=== PATIENT | female | born 1980 | race Caucasian/White ===

== ENCOUNTER 2017-04-18 12:48 | Emergency (ER) | payer SELFPAY ==
[2017-04-18 14:15] LABS: #Basophils 0.1 thou/uL (0.0-0.2); #Eosinphils 0.1 thou/uL (0.0-0.7); #Lymphocytes 1.1 thou/uL (1.20-3.40); #Monocytes 0.6 thou/uL (0.11-0.59); #Neutrophils 5.6 thou/uL (1.40-6.50); %Basophils 0.9 % (0.0-1.0); %Lymphocytes 14.9 % (21.0-51.0); %Monocytes 7.4 % (0.0-10.0); Hematocrit 44.1 % (36.0-47.0); Red Blood Cell (RBC) Count 4.59 mill/uL (4.20-5.40); White Blood Cell (WBC) Count 7.5 thou/uL (4.8-10.8)
[2017-04-18 14:19] LABS: Bilirubin Negative (Negative); Blood, Urine Small (Negative); Glucose, Urine (Dipstick) Negative (Negative); Ketone, Urine Negative (Negative); Nitrite Negative (Negative); Protein, Urine (Dipstick) Trace mg/dL (Neg-Trace)
[2017-04-18 14:20] LABS: Bacteria/HPF 1+ HPF (None Seen); RBC/HPF 0-3 HPF (0-3); WBC/HPF 21-50 HPF (0-3)
[2017-04-18 14:30] LABS: Hyaline Casts/LPF 0-3 HYALINE CAST LPF (0-3 Hyaline); Yeast-All Forms None Seen HPF (None Seen)
[2017-04-18 14:39] LABS: ALT (SGPT) 441 U/L (8-55); AST (SGOT) 194 U/L (5-34); Alkaline Phosphatase 103 U/L (40-150); Anion Gap 14 mmol/L (10-20); BUN (Urea Nitrogen) 15 mg/dL (7.0-18.7); Bilirubin, Total 0.7 mg/dL (0.2-1.2); Calc. Creatinine Clearance 0 mL/min (70-130); Calcium 9.2 mg/dL (7.8-10.44); Carbon Dioxide 23 mmol/L (22-29); Chloride 104 mmol/L (98-107); Estimated GFR-MDRD 82; Globulin 3.4 g/dL (2.4-3.5); Protein, Total 7.3 g/dL (6.0-8.3); Troponin I 0.013 ng/mL (< 0.028)
--- NOTE | 2017-04-18 14:51 | CT ---
NONCONTRAST CT FACIAL BONES 04/18/2017 HISTORY: Syncopal episode in parking garage. The patient hit head on ground causing abrasions. COMPARISON: 05/23/2016. FINDINGS: The left temporomandibular joint is incompletely imaged, but there does not appear to be dislocation at this level and no obvious fracture seen involving the mandible. No additional fracture seen inv olving the facial bones. There is polypoid mucosal thickening seen within the right maxillary antrum which does represent an interval change from prior exam in 2016. The orbits have a normal and symmetric appearance bilaterally. IMPRESSION: 1. No acute fracture seen involving the facial bones. 2. Sinus disease involving the right maxillary antrum. POS: [facility]
--- NOTE | 2017-04-18 14:53 | CT ---
HEAD CT WITHOUT CONTRAST 04/18/2017 COMPARISON: 05/21/2016 HISTORY: Syncopal episode, head trauma, abrasion. TECHNIQUE: Serial axial CT imaging at 5-mm intervals from vertex through skull base without contrast. FINDINGS: Imaged paranasal sinuses and mastoid air cells appear within normal limits. No displaced calvarial fracture. No intracranial hemorrhage, midline shift, mass effect, or ventric ular enlargement. IMPRESSION: No intracranial hemorrhage or displaced calvarial fracture. POS: [facility]
[2017-04-18] MEDS ORDERED: Bacitracin Zinc 1 Packet ONE (15:11)
== END 2017-04-18 15:26 | disposition home or self-care (01) ==
LOC: ERS 12:48
DX: E86.0 Dehydration (principal); N39.0 Urinary tract infection, site not specified; E11.9 Type 2 diabetes mellitus without complications; I10 Essential (primary) hypertension; F41.9 Anxiety disorder, unspecified; F31.9 Bipolar disorder, unspecified; F20.9 Schizophrenia, unspecified
CPT/HCPCS: 36415; 36416; 70450; 70486; 80053; 81003; 81015; 82553; 84484; 84703; 85025; 93005

== ENCOUNTER 2017-06-09 11:39 | Emergency (ER) | payer SELFPAY ==
[2017-06-09 12:23] LABS: #Basophils 0.1 thou/uL (0.0-0.2); #Eosinphils 0.2 thou/uL (0.0-0.7); #Neutrophils 3.9 thou/uL (1.40-6.50); %Basophils 0.9 % (0.0-1.0); %Eosinophils 2.6 % (0.0-10.0); %Lymphocytes 27.6 % (21.0-51.0); %Monocytes 14.3 % (0.0-10.0); Hematocrit 41.3 % (36.0-47.0); Mean Platelet Volume 7.1 fL (7.4-10.4); Red Blood Cell (RBC) Count 4.17 mill/uL (4.20-5.40); White Blood Cell (WBC) Count 7.2 thou/uL (4.8-10.8)
[2017-06-09 12:44] LABS: ALT (SGPT) 546 U/L (8-55); AST (SGOT) 285 U/L (5-34); Alkaline Phosphatase 122 U/L (40-150); Anion Gap 12 mmol/L (10-20); BUN (Urea Nitrogen) 11 mg/dL (7.0-18.7); Bilirubin, Total 0.5 mg/dL (0.2-1.2); Calc. Creatinine Clearance 0 mL/min (70-130); Calcium 9.1 mg/dL (7.8-10.44); Carbon Dioxide 22 mmol/L (22-29); Chloride 108 mmol/L (98-107); Estimated GFR-MDRD Greater than 90; Globulin 3.2 g/dL (2.4-3.5)
[2017-06-09 13:46] LABS: Bilirubin Negative (Negative); Blood, Urine Negative (Negative); Glucose, Urine (Dipstick) Negative (Negative); Ketone, Urine Negative (Negative); Nitrite Negative (Negative); Protein, Urine (Dipstick) Negative (Neg-Trace); Urobilinogen 0.2 mg/dL (0.2-1.0)
[2017-06-09] MEDS ORDERED: Ondansetron ODT 4 MG TAB ONE (13:57)
== END 2017-06-09 15:05 | disposition home or self-care (01) ==
LOC: ERS 11:39
DX: B17.9 Acute viral hepatitis, unspecified (principal); R53.83 Other fatigue; R11.2 Nausea with vomiting, unspecified; E11.9 Type 2 diabetes mellitus without complications; F41.9 Anxiety disorder, unspecified; F31.9 Bipolar disorder, unspecified; F20.9 Schizophrenia, unspecified; I10 Essential (primary) hypertension
CPT/HCPCS: 36415; 36416; 80053; 81003; 85025; 99284; Q0162

== ENCOUNTER 2017-06-22 14:53 | Emergency (ER) | payer SELFPAY | END 2017-06-22 17:06 | disposition left against medical advice (07) | LOC: ERS 14:53 | DX: Z53.21 Procedure and treatment not carried out due to patient leaving prior to being seen by health care provider (principal) | CPT/HCPCS: 87804 ==

== ENCOUNTER 2017-06-23 10:46 | Emergency (ER) | payer SELFPAY ==
--- NOTE | 2017-06-23 12:34 | RAD ---
CHEST 1 VIEW HISTORY: Chest pain. COMPARISON: Chest 1 view 05/21/2016. FINDINGS: Lungs are without consolidation, pneumothorax, or effusion. The patient is rotated to the right. No acute osseous abnormality. IMPRESSION: No acute intrathoracic abnormality. POS: [facility]
--- NOTE | 2017-07-16 15:14 | EKG ---
Test Reason : CP Blood Pressure : / mmHG Vent. Rate : 096 BPM Atrial Rate : 096 BPM P-R Int : 150 ms QRS Dur : 076 ms QT Int : 360 ms P-R-T Axes : 020 013 025 degrees QTc Int : 454 ms Normal sinus rhythm Normal ECG Confirmed by VEGA SORIANO, TIMBO ([id number]), editorial project manager AYAKA CUTLER ([id number]) on 07/16/2017 3:14:10 PM Referred By: Confirmed By:TIMBO FERRARI MD
== END 2017-06-23 12:13 | disposition home or self-care (01) ==
LOC: ERS 10:46
DX: J11.1 Influenza due to unidentified influenza virus with other respiratory manifestations (principal); R07.2 Precordial pain; E11.9 Type 2 diabetes mellitus without complications; I10 Essential (primary) hypertension; F41.9 Anxiety disorder, unspecified; F31.9 Bipolar disorder, unspecified; F20.9 Schizophrenia, unspecified
CPT/HCPCS: 71045; 93005

== ENCOUNTER 2017-11-17 15:50 | Emergency (ER) | payer SELFPAY ==
[2017-11-17 17:55] LABS: #Basophils 0.1 thou/uL (0.0-0.2); #Eosinphils 0.3 thou/uL (0.0-0.7); #Lymphocytes 2.2 thou/uL (1.20-3.40); #Monocytes 0.9 thou/uL (0.11-0.59); #Neutrophils 6.1 thou/uL (1.40-6.50); %Basophils 0.6 % (0.0-1.0); %Eosinophils 3.6 % (0.0-10.0); %Lymphocytes 22.7 % (21.0-51.0); %Monocytes 9.7 % (0.0-10.0); %Neutrophils 63.4 % (42.0-75.0); Hemoglobin 14.3 g/dL (12.0-16.0); Mean Corpuscular HGB CONC 33.7 g/dL (32.0-36.0); Mean Corpuscular Hemoglobin 31.5 pg (27.0-31.0); Mean Corpuscular Volume 93.5 fl (81.0-99.0); Platelet Count 240 thou/uL (130-400); RBC Distribution Width 12.1 % (11.5-14.5); Red Blood Cell (RBC) Count 4.53 mill/uL (4.20-5.40); White Blood Cell (WBC) Count 9.6 thou/uL (4.8-10.8)
[2017-11-17 18:21] LABS: ALT (SGPT) 132 U/L (8-55); AST (SGOT) 67 U/L (5-34); Albumin 4.2 g/dL (3.5-5.0); Alkaline Phosphatase 78 U/L (40-150); Anion Gap 11 mmol/L (10-20); BUN (Urea Nitrogen) 17 mg/dL (7.0-18.7); Bilirubin, Total 1.3 mg/dL (0.2-1.2); Calc. Creatinine Clearance 0 mL/min (70-130); Calcium 9.6 mg/dL (7.8-10.44); Carbon Dioxide 24 mmol/L (22-29); Chloride 105 mmol/L (98-107); Estimated GFR-MDRD 79; Glucose 100 mg/dL (70-105); Potassium 3.8 mmol/L (3.5-5.1); Protein, Total 7.2 g/dL (6.0-8.3); Sodium 136 mmol/L (136-145)
== END 2017-11-17 19:15 | disposition home or self-care (01) ==
LOC: ERS 15:50
DX: L03.221 Cellulitis of neck (principal); K74.60 Unspecified cirrhosis of liver; I10 Essential (primary) hypertension; F31.9 Bipolar disorder, unspecified; F41.9 Anxiety disorder, unspecified; F20.9 Schizophrenia, unspecified; E11.9 Type 2 diabetes mellitus without complications
CPT/HCPCS: 36415; 80053; 85025; 87040; 93005; 94760

== ENCOUNTER 2017-11-19 11:35 | Emergency (ER) | payer SELFPAY ==
[2017-11-19 12:16] LABS: #Basophils 0.1 thou/uL (0.0-0.2); #Eosinphils 0.3 thou/uL (0.0-0.7); #Lymphocytes 1.7 thou/uL (1.20-3.40); #Monocytes 0.7 thou/uL (0.11-0.59); #Neutrophils 3.5 thou/uL (1.40-6.50); %Basophils 1.1 % (0.0-1.0); %Eosinophils 4.7 % (0.0-10.0); %Monocytes 10.6 % (0.0-10.0); %Neutrophils 56.6 % (42.0-75.0); Hemoglobin 13.4 g/dL (12.0-16.0); Mean Corpuscular HGB CONC 33.1 g/dL (32.0-36.0); Mean Corpuscular Hemoglobin 31.5 pg (27.0-31.0); Mean Platelet Volume 7.1 fL (7.4-10.4); Platelet Count 220 thou/uL (130-400); Red Blood Cell (RBC) Count 4.27 mill/uL (4.20-5.40); White Blood Cell (WBC) Count 6.2 thou/uL (4.8-10.8)
[2017-11-19 12:18] LABS: BHCG - Serum Negative (NEGATIVE); Pregs Control Background? CLEAR/WHITE (CLR/WHITE); Pregs Control Bar Appear? YES (CONTROL BAR)
[2017-11-19 12:29] LABS: ALT (SGPT) 125 U/L (8-55); AST (SGOT) 75 U/L (5-34); Albumin 3.7 g/dL (3.5-5.0); Alkaline Phosphatase 74 U/L (40-150); Anion Gap 9 mmol/L (10-20); BUN (Urea Nitrogen) 10 mg/dL (7.0-18.7); Bilirubin, Total 0.5 mg/dL (0.2-1.2); Calc. Creatinine Clearance 0 mL/min (70-130); Calcium 8.9 mg/dL (7.8-10.44); Carbon Dioxide 25 mmol/L (22-29); Chloride 108 mmol/L (98-107); Estimated GFR-MDRD Greater than 90; Globulin 2.6 g/dL (2.4-3.5); Glucose 90 mg/dL (70-105); Potassium 4.1 mmol/L (3.5-5.1); Protein, Total 6.3 g/dL (6.0-8.3); Sodium 138 mmol/L (136-145)
[2017-11-19 14:26] LABS: Bilirubin Negative (Negative); Blood, Urine Large (Negative); Clarity CLOUDY (Clear); Glucose, Urine (Dipstick) Negative (Negative); Leukocyte Trace (Negative); Nitrite Negative (Negative); Protein, Urine (Dipstick) Negative (Neg-Trace); Specific Gravity, Urine 1.027 (1.002-1.036); Urobilinogen 0.2 mg/dL (0.2-1.0)
[2017-11-19 14:29] LABS: Bacteria/HPF None Seen HPF (None Seen); Hyaline Casts/LPF 0-3 HYALINE CAST LPF (0-3 Hyaline); Pathc Cast-AUWi Flag 4.21 (0-2.49)
[2017-11-19] MEDS ORDERED: Acetaminophen 500 MG TAB ONE (14:35)
== END 2017-11-19 14:37 | disposition home or self-care (01) ==
LOC: ERS 11:35
DX: R55 Syncope and collapse (principal); M54.2 Cervicalgia; E11.9 Type 2 diabetes mellitus without complications; I10 Essential (primary) hypertension; Z86.19 Personal history of other infectious and parasitic diseases; F41.9 Anxiety disorder, unspecified; F31.9 Bipolar disorder, unspecified; F20.9 Schizophrenia, unspecified; X95.8XXA Assault by other firearm discharge, initial encounter
CPT/HCPCS: 36415; 80053; 81003; 81015; 84703; 85025; 93005

== ENCOUNTER 2018-02-09 14:20 | Emergency (ER) | payer SELFPAY | END 2018-02-09 15:22 | disposition home or self-care (01) | LOC: ERS 14:20 | DX: F43.0 Acute stress reaction (principal); E11.9 Type 2 diabetes mellitus without complications; I10 Essential (primary) hypertension ==

== ENCOUNTER 2018-03-15 11:52 | Emergency (ER) | payer SELFPAY ==
[2018-03-15 12:42] LABS: Bilirubin Small (Negative); Blood, Urine Large (Negative); Clarity CLOUDY (Clear); Glucose, Urine (Dipstick) Negative (Negative); Leukocyte Moderate (Negative); Nitrite Negative (Negative); Protein, Urine (Dipstick) Trace mg/dL (Neg-Trace)
[2018-03-15 12:44] LABS: WBC/HPF 21-50 HPF (0-3)
[2018-03-15 12:45] LABS: Pathc Cast-AUWi Flag 9.01 (0-2.49); Pregnancy Test - Urine (BHCG) Negative (Negative); Pregu Control Background? CLEAR/WHITE (CLR/WHITE); Pregu Control Bar Appear? YES (CONTROL BAR); Yeast-AUWi Flag 65.1 (0-25.0)
[2018-03-15 12:57] LABS: Bacteria/HPF 1+ HPF (None Seen); RBC/HPF 0-3 HPF (0-3)
[2018-03-15 12:58] LABS: Hyaline Casts/LPF 0-3 HYALINE CAST LPF (0-3 Hyaline); Manual Microscopic Reviewed? No Path Casts Seen; Yeast-All Forms None Seen HPF (None Seen)
[2018-03-15 13:18] LABS: #Basophils 0.1 thou/uL (0.0-0.2); #Eosinphils 0.3 thou/uL (0.0-0.7); #Monocytes 0.9 thou/uL (0.11-0.59); #Neutrophils 5.3 thou/uL (1.40-6.50); %Basophils 0.8 % (0.0-1.0); %Eosinophils 2.9 % (0.0-10.0); %Lymphocytes 23.4 % (21.0-51.0); %Neutrophils 61.9 % (42.0-75.0); Hemoglobin 14.6 g/dL (12.0-16.0); Mean Corpuscular HGB CONC 32.1 g/dL (32.0-36.0); Mean Corpuscular Hemoglobin 29.6 pg (27.0-31.0); Mean Corpuscular Volume 92.4 fL (78.0-98.0); Mean Platelet Volume 7.2 fL (7.4-10.4); Platelet Count 289 thou/uL (130-400); RBC Distribution Width 11.8 % (11.5-14.5); Red Blood Cell (RBC) Count 4.93 mill/uL (4.20-5.40); White Blood Cell (WBC) Count 8.6 thou/uL (4.8-10.8)
[2018-03-15 13:20] LABS: Amphetamine Detected (NotDetected); Barbiturates Screen Not Detected (NotDetected); Benzodiazepine Screen Not Detected (NotDetected); Cocaine Metabolite Screen Not Detected (NotDetected); Medtox Reader # READER 1; Methadone Not Detected (NotDetected); Methamphetamine Detected (NotDetected); Opiate Screen Not Detected (NotDetected); Oxycodone Screen Not Detected (NotDetected); Phencyclidine (PCP) Not Detected (NotDetected); THC/Cannabinoid Screen Not Detected (NotDetected); Tricyclic Screen Not Detected (NotDetected)
[2018-03-15 13:21] LABS: Medtox Control Line Valid? VALID (VALID)
[2018-03-15 13:28] LABS: ALT (SGPT) 161 U/L (8-55); AST (SGOT) 110 U/L (5-34); Albumin 4.2 g/dL (3.5-5.0); Alkaline Phosphatase 92 U/L (40-150); Anion Gap 15 mmol/L (10-20); BUN (Urea Nitrogen) 9 mg/dL (7.0-18.7); Bilirubin, Total 0.6 mg/dL (0.2-1.2); Calc. Creatinine Clearance 0 mL/min (70-130); Calcium 9.5 mg/dL (7.8-10.44); Carbon Dioxide 21 mmol/L (22-29); Chloride 107 mmol/L (98-107); Estimated GFR-MDRD 82; Globulin 3.3 g/dL (2.4-3.5); Glucose 103 mg/dL (70-105); Potassium 4.3 mmol/L (3.5-5.1); Protein, Total 7.5 g/dL (6.0-8.3); Sodium 139 mmol/L (136-145)
--- NOTE | 2018-03-15 13:31 | RAD ---
PA AND LATERAL CHEST: HISTORY: Cough. FINDINGS: The cardiomediastinum is normal. The lungs are well expanded and clear. The bony thorax is normal. IMPRESSION: Normal examination. POS: [facility]
[2018-03-15] MEDS ORDERED: Naloxone HCl 0.4 mg/ml Vial ONE (13:36)
== END 2018-03-15 14:15 | disposition home or self-care (01) ==
LOC: ERS 11:52
DX: F15.10 Other stimulant abuse, uncomplicated (principal); N39.0 Urinary tract infection, site not specified; E11.9 Type 2 diabetes mellitus without complications; I10 Essential (primary) hypertension; F41.9 Anxiety disorder, unspecified; F31.9 Bipolar disorder, unspecified; F20.9 Schizophrenia, unspecified
CPT/HCPCS: 71046; 80053; 80306; 81003; 81015; 81025; 83605; 85025; 87040; 96360; 96374; J2310

== ENCOUNTER 2018-04-10 12:33 | Emergency (ER) | payer SELFPAY | END 2018-04-10 13:00 | disposition home or self-care (01) | LOC: ERS 12:33 | DX: Z00.00 Encounter for general adult medical examination without abnormal findings (principal); E11.9 Type 2 diabetes mellitus without complications; I10 Essential (primary) hypertension; F41.9 Anxiety disorder, unspecified; F31.9 Bipolar disorder, unspecified; F20.9 Schizophrenia, unspecified | CPT/HCPCS: 99281 ==

== ENCOUNTER 2018-11-04 14:43 | Emergency (ER) | payer SELFPAY ==
[2018-11-04] MEDS ORDERED: Ondansetron ODT 4 MG TAB ONE (15:30)
[2018-11-04 15:43] LABS: Bilirubin Negative (Negative); Blood, Urine Negative (Negative); Clarity CLEAR (Clear); Glucose, Urine (Dipstick) Negative (Negative); Leukocyte Small (Negative); Nitrite Negative (Negative); Protein, Urine (Dipstick) Negative (Neg-Trace); Specific Gravity, Urine 1.013 (1.002-1.036); Urobilinogen 0.2 mg/dL (0.2-1.0)
[2018-11-04 15:47] LABS: Pregnancy Test - Urine (BHCG) Negative (Negative); Pregu Control Background? CLEAR/WHITE (CLR/WHITE); Pregu Control Bar Appear? YES (CONTROL BAR); Specific Gravity 1.013 (1.002-1.036)
[2018-11-04 15:48] LABS: Urine Culture Reflex No No
[2018-11-04 16:11] LABS: Mean Corpuscular HGB CONC 32.3 g/dL (32.0-36.0); Mean Corpuscular Hemoglobin 30.7 pg (27.0-31.0); Mean Corpuscular Volume 95.1 fL (78.0-98.0); RBC Distribution Width 12.3 % (11.5-14.5); Red Blood Cell (RBC) Count 4.56 mill/uL (4.20-5.40); White Blood Cell (WBC) Count 10.2 thou/uL (4.8-10.8)
[2018-11-04 16:12] LABS: #Basophils 0.1 thou/uL (0.0-0.2); #Eosinphils 0.3 thou/uL (0.0-0.7); #Lymphocytes 2.4 thou/uL (1.20-3.40); #Neutrophils 6.4 thou/uL (1.40-6.50); %Basophils 0.8 % (0.0-1.0); %Eosinophils 2.6 % (0.0-10.0); %Lymphocytes 23.8 % (21.0-51.0); %Monocytes 9.8 % (0.0-10.0)
[2018-11-04 16:28] LABS: Mean Platelet Volume 8.7 fL (7.4-10.4); Platelet Count 230 thou/uL (130-400); Platelet Morphology Comment Appears Adequate; RBC Morphology Normal
[2018-11-04 16:33] LABS: ALT (SGPT) 182 U/L (8-55); AST (SGOT) 85 U/L (5-34); Albumin 3.9 g/dL (3.5-5.0); Alkaline Phosphatase 91 U/L (40-150); Anion Gap 7 mmol/L (10-20); BUN (Urea Nitrogen) 11 mg/dL (7.0-18.7); Bilirubin, Total 0.3 mg/dL (0.2-1.2); Calc. Creatinine Clearance 0 mL/min (70-130); Calcium 8.7 mg/dL (7.8-10.44); Carbon Dioxide 24 mmol/L (22-29); Chloride 109 mmol/L (98-107); Estimated GFR-MDRD 84; Glucose 95 mg/dL (70-105); Potassium 3.8 mmol/L (3.5-5.1); Protein, Total 6.9 g/dL (6.0-8.3); Sodium 136 mmol/L (136-145)
--- NOTE | 2018-11-04 17:00 | RAD ---
EXAM: CHEST ONE VIEW HISTORY: Abdominal pain with nausea and vomiting. Patient is feeling bad. Patient throwing up blood. Difficult y breathing after waking up this morning. COMPARISON: 06/23/2017 FINDINGS: The cardiac silhouette and pulmonary vasculature is within normal limits. The lungs are clear. The os seous structures are intact. IMPRESSION: No acute cardiopulmonary process.
== END 2018-11-04 17:46 | disposition home or self-care (01) ==
LOC: ERS 14:43
DX: R07.9 Chest pain, unspecified (principal); N39.0 Urinary tract infection, site not specified; R06.02 Shortness of breath; R10.9 Unspecified abdominal pain; L98.9 Disorder of the skin and subcutaneous tissue, unspecified; R11.2 Nausea with vomiting, unspecified; B19.20 Unspecified viral hepatitis C without hepatic coma; E11.9 Type 2 diabetes mellitus without complications; I10 Essential (primary) hypertension; F41.9 Anxiety disorder, unspecified; F31.9 Bipolar disorder, unspecified; F20.9 Schizophrenia, unspecified
CPT/HCPCS: 36415; 71045; 80053; 81003; 81025; 84484; 85025; 93005; Q0162

== ENCOUNTER 2019-04-11 14:37 | Emergency (ER) | payer SELFPAY ==
[2019-04-11 15:42] LABS: #Basophils 0.1 thou/uL (0.0-0.2); #Eosinphils 0.2 thou/uL (0.0-0.7); #Monocytes 0.9 thou/uL (0.11-0.59); #Neutrophils 4.8 thou/uL (1.40-6.50); %Basophils 1.1 % (0.0-1.0); %Eosinophils 2.3 % (0.0-10.0); %Lymphocytes 24.8 % (21.0-51.0); %Neutrophils 60.9 % (42.0-75.0); Hemoglobin 12.9 g/dL (12.0-16.0); Mean Corpuscular HGB CONC 31.3 g/dL (32.0-36.0); Mean Corpuscular Hemoglobin 29.6 pg (27.0-31.0); Mean Corpuscular Volume 94.6 fL (78.0-98.0); Mean Platelet Volume 7.4 fL (7.4-10.4); Platelet Count 283 thou/uL (130-400); RBC Distribution Width 12.5 % (11.5-14.5); Red Blood Cell (RBC) Count 4.35 mill/uL (4.20-5.40); White Blood Cell (WBC) Count 7.9 thou/uL (4.8-10.8)
[2019-04-11 15:57] LABS: BHCG - Serum Negative (NEGATIVE); Pregs Control Background? CLEAR/WHITE (CLR/WHITE); Pregs Control Bar Appear? YES (CONTROL BAR)
[2019-04-11] MEDS ORDERED: Ondansetron ODT 8 MG TAB ONE (16:02)
[2019-04-11] MEDS ORDERED: Lidocaine Viscous Sol 2% 15 ml UD Cup ONE (16:02)
[2019-04-11] MEDS ORDERED: Mag-Al 1200 mg/1200 mg/30 ML UDCUP ONE (16:02)
[2019-04-11 16:04] LABS: ALT (SGPT) 167 U/L (8-55); AST (SGOT) 107 U/L (5-34); Albumin 4.1 g/dL (3.5-5.0); Alkaline Phosphatase 103 U/L (40-110); Anion Gap 11 mmol/L (10-20); BUN (Urea Nitrogen) 10 mg/dL (7.0-18.7); Bilirubin, Total 0.4 mg/dL (0.2-1.2); Calc. Creatinine Clearance 0 mL/min (70-130); Calcium 9.5 mg/dL (7.8-10.44); Carbon Dioxide 29 mmol/L (22-29); Chloride 103 mmol/L (98-107); Estimated GFR-MDRD 82; Globulin 2.9 g/dL (2.4-3.5); Glucose 82 mg/dL (70-105); Sodium 138 mmol/L (136-145)
== END 2019-04-11 17:00 | disposition home or self-care (01) ==
LOC: ERS 14:37
DX: R11.2 Nausea with vomiting, unspecified (principal); R10.12 Left upper quadrant pain; B19.20 Unspecified viral hepatitis C without hepatic coma; E11.9 Type 2 diabetes mellitus without complications; I10 Essential (primary) hypertension; F31.9 Bipolar disorder, unspecified; F41.9 Anxiety disorder, unspecified; F20.9 Schizophrenia, unspecified; F17.290 Nicotine dependence, other tobacco product, uncomplicated
CPT/HCPCS: 36415; 80053; 84703; 85025; 99284